=== PATIENT | female | born 1940 | race Caucasian/White ===

== ENCOUNTER 2017-08-16 10:35 | Outpatient (POV) | END 2017-08-16 17:00 | LOC: OUTPT 10:35 | PROVIDERS: ATTEND Otolaryngology | DX: H91.90 Unspecified hearing loss, unspecified ear (principal) ==

== ENCOUNTER 2017-12-19 06:39 | Outpatient (CLI) ==
--- NOTE | 2017-12-20 09:59 | HOLTER ---
PATIENT INFORMATION AND COMMENTS Attending Physician: DR. QUINCY GARCIA Indications: PALPITATIONS __ Patient Medications: ATORVASTATIN, RANITIDINE, LISINOPRIL, GABAPENTIN __ Pre-procedure Summary: Protocol: Standard Heart Rate Started: 12/19/17850 Minimum: 56 BPM Weight: 190 LBS Ended: 12/20/17724 Maximum: 137 BPM Height: 65" Duration: 24" Average: 82 BPM _ INTERPRETATIONS/OBSERVATIONS: 1. BASIC RHYTHM: SINUS, RATE 56 BPM TO 134 BPM, AVERAGE 82 BPM 2. RARE PAC'S AND PVC'S 3. NO ST-T WAVE CHANGES FROM BASELINE 4. ACTIVITY LOG NOT HELPFUL MTDD
--- NOTE | 2017-12-20 10:04 | ECHO2D ---
Date of Exam: 12/19/17 Ordering Physician: DR. QUINCY GARCIA Room # : OP Reason for Echo: SOB, PALPITATIONS, HTN M-Mode Normal Adult Results LV Dimensions Normal Adult Results AoV Opening excursions >1.6 >1.6 LVEDD-base- 3.5-5.8 3.5 Ao root dimensions 2.0-3.7 3.2 LVESD-base- 3.1-4.6 L. Atrium dimensions 1.9-3.8 4.0 Post. Wall thickness 0.8-1.1 1.1 IV septum (thickness) 0.7-1.2 1.2 Post. Wall excursion 0.72-1.3 NORMAL Septal motion NORMAL Systolic motion R. Ventricular cavity 1.5-2.0 NORMAL LVEF 60% 62% Paradoxical septal wall motion NORMAL 2-D : 2-D M Mode Echocardiogram was performed using apical four chamber and left parasternal long and short axis views. Mitral, tricuspid and aortic valves appear to be normal. Contractility of the left ventricle seems to be normal, so is the cavity size. Left atrial cavity size and aortic root appear to be normal. There is no pericardial effusion. There is no thrombus noted in the left ventricular or left aortic cavity. No mitral valve prolapse noted. M-MODE: MV: NORMAL AV: NORMAL TV: NORMAL PV: CHAMBER SIZE: BORDERLINE LEFT ATRIAL CAVITY ENLARGEMENT WALL MOTION: NORMAL PERICARDIUM: NORMAL INTERPRETATION: 1. BORDERLINE LEFT VENTRICULAR HYPERTROPHY WITH BORDERLINE LEFT ATRIAL CAVITY ENLARGEMENT 2. NORMAL LEFT VENTRICULAR CONTRACTILITY 3. NORMAL VALVES MTDD
== END 2017-12-19 06:40 | disposition home or self-care (01) ==
LOC: CAR 06:39
PROVIDERS: ATTEND Internal Medicine
DX: R06.02 Shortness of breath (principal); R00.2 Palpitations; I10 Essential (primary) hypertension
CPT/HCPCS: 93227

== ENCOUNTER 2017-12-20 06:42 | Outpatient (CLI) ==
[2017-12-20] MEDS ORDERED: ATROPINE SULFATE PFS ONE (07:10)
[2017-12-20] MEDS ORDERED: DOBUTAMINE 500 MG-D5W 250 ML 250 ML IV ONE (07:10)
--- NOTE | 2017-12-20 10:19 | DOBSTECHO ---
Date of Test: 12/20/17 Ordering Physician: DR. QUINCY GARCIA Reason for Examination: SOB, PALPITATIONS, HYPERTENSION Current Medications: ATORVASTATIN, RANITIDINE, LISINOPRIL, GABAPENTIN Height: 64" Weight: 190 LBS Target Heart Rate: 122/144 S-T Segment Stage Time HR BPM BP MMHG Rhythm +/- Elevation Depression Symptoms Control Sitting 63 BPM 122/72 SR X NONE Dobutamine 250mg/D5W 5cmg/KG/mn 10cmg/KG/mn 3:00 97 BPM 162/60 SR X NONE 15cmg/KG/mn 2:00 118 BPM 158/56 SR X NONE 20cmg/KG/mn :14 125 BPM SR X NONE 25cmg/KG/mn 30cmg/KG/mn 35cmg/KG/mn 40cmg/KG/mn 4:00 MIN POST INFUSION z 103 116/60 SR X NONE 7:00 MIN POST INFUSION z 96 DURATION OF INFUSION 5:14 MAXIMUM HEART RATE REACHED 125 BPM 98% OXYGEN SATURATION ON ROOM AIR WITH DOBUTAMINE INFUSION Interpretation: 1. NO EVIDENCE OF ISCHEMIA BY ST-T WAVE 2. NO CHEST PAIN OR DISCOMFORT 3. NORMAL LEFT VENTRICULAR CONTRACTILITY--RESTING AND POST EXERCISE MTDD
--- NOTE | 2017-12-20 10:48 | ECHOSTRESS ---
Date of Exam: 12/20/17 Ordering Physician: DR. QUINCY GARCIA Reason for Echo: SOB, PALPITATIONS, DOBUTAMINE STRESS TEST--NO ISCHEMIA M-Mode Normal Adult Results LV Dimensions Normal Adult Results AoV Opening excursions >1.6 LVEDD-base- 3.5-5.8 Ao root dimensions 2.0-3.7 LVESD-base- 3.1-4.6 L. Atrium dimensions 1.9-3.8 Post. Wall thickness 0.8-1.1 IV septum (thickness) 0.7-1.2 Post. Wall excursion 0.72-1.3 Septal motion Systolic motion R. Ventricular cavity 1.5-2.0 LVEF 60% Paradoxical septal wall motion 2-D: NORMAL LEFT VENTRICULAR CONTRACTILITY--RESTING AND POST EXERCISE M-MODE: MV: AV: TV: PV: CHAMBER SIZE: WALL MOTION: NORMAL LEFT VENTRICULAR CONTRACTILITY--RESTING AND POST EXERCISE PERICARDIUM: INTERPRETATION: 1. NORMAL LEFT VENTRICULAR CONTRACTILITY--RESTING AND POST EXERCISE MTDD
--- NOTE | 2017-12-20 13:12 | DI ---
Exam: Chest two-view HISTORY: Short of breath. Comparison: 04/26/2016. FINDINGS: Two views of the chest demonstrate hyper expanded lungs with no evidence of pneumonia or e shay. The heart is normal in size and configuration. The thoracic aorta is partially calcified. Ca lcified granulomata are noted. The pulmonary vasculature is not congested. The skeletal structures a re intact. There are degenerative findings in the spine. IMPRESSION: No acute cardiopulmonary disease. Hyperexpanded lungs consistent with COPD. Atherosclerosis and prior granulomatosis. The left lung base nodular opacity is unchanged
== END 2017-12-20 06:43 | disposition home or self-care (01) ==
LOC: CAR 06:42
PROVIDERS: ATTEND Internal Medicine
DX: R06.02 Shortness of breath (principal); R00.2 Palpitations; I10 Essential (primary) hypertension

== ENCOUNTER 2018-07-02 07:08 | Day surgery (SDC) | payer OTHER ==
[2018-07-02 07:27] VITALS: TEMP 96.1
[2018-07-02] MEDS ORDERED: LIDOCAINE 1% 20 ML MDV ID STA (07:27)
[2018-07-02] MEDS ORDERED: VERSED ONE (08:25)
[2018-07-02] MEDS ORDERED: DIPRIVAN 20 ML VIAL IVP ONE (08:25)
[2018-07-02 09:02] VITALS: BP 117/49
--- NOTE | 2018-07-03 12:48 | OP ---
PROCEDURE: COLONOSCOPY TO THE CECUM WITH SNARE POLYPECTOMY. ENDOSCOPIST: Rosita ALVARENGA M.D. INDICATION: HISTORY OF POLYPS. INSTRUMENT: [id number]. MEDICATION: PER ANESTHESIA. PROCEDURE: The patient was positioned for colonoscopy. The digital rectal exam was negative. The colonoscope was inserted through the anus and advanced to the cecum. The cecum was identified using the ileocecal valve and the appendiceal orifice as landmarks. The scope was slowly withdrawn through an adequately prepped colon. Encinal Bowel Prep Score = 9. Small polyp at the hepatic flexure removed using snare cautery. A second polyp at 30 cm removed using snare cautery. Diverticulosis in the left colon. Anastomosis is noted at 20 cm. Retroflex exam was otherwise normal. Withdrawal time 9 minutes and 30 seconds. PLAN: 1. Review pathology. 2. Anticipate repeat colonoscopy in five years. CC: DR. RADHA MCFADDEN
== END 2018-07-02 09:30 | disposition home or self-care (01) ==
LOC: SURG 07:08
PROVIDERS: ATTEND Internal Medicine Gastroenterology
DX: Z86.010 Personal history of colon polyps (principal); D12.3 Benign neoplasm of transverse colon; D12.5 Benign neoplasm of sigmoid colon

== ENCOUNTER 2018-07-16 09:14 | Outpatient (CLI) | payer OTHER ==
--- NOTE | 2018-07-16 09:44 | DI ---
EXAM: LEFT SHOULDER HISTORY: Shoulder pain FINDINGS: Left shoulder three-view. General bone density appears decreased. There is no fracture, joint separation or dislocation. There is at least mild osteoarthritis of the glenohumeral joint. T here is at least moderate osteoarthritis involving the acromioclavicular joint. There is an inferior bony spur off of the acromion process extending for about 7.4 mm and this could encroach upon the un derlying rotator cuff apparatus. IMPRESSION: 1. Arthropathy of the shoulder as described.
--- NOTE | 2018-07-16 09:52 | DI ---
EXAM: RIGHT KNEE. HISTORY: Knee pain. FINDINGS: Right knee four view. 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 No fractu re, osteochondral fragmentation or joint effusion. There is enthesopathy at the insertion of the pete driceps tendon onto the patella. No other soft tissue finding. IMPRESSION: 1. Arthritic changes of the knee.
== END 2018-07-16 09:15 | disposition home or self-care (01) ==
LOC: RAD 09:14
PROVIDERS: ATTEND Internal Medicine
DX: M25.512 Pain in left shoulder (principal); M25.561 Pain in right knee